=== PATIENT | male | born 1985 | race Caucasian/White ===

== ENCOUNTER 2019-12-29 10:02 | Emergency (ER) | payer BC, SELFPAY ==
[2019-12-29 10:13] VITALS: BP 148/94; BP 165/116; PULSE 112; RESP 20; TEMP 37.2; O2SAT 97; BMI 45.1
[2019-12-29 10:18] VITALS: BP 165/116; PULSE 112; RESP 20; TEMP 37.2; O2SAT 97
--- NOTE | 2019-12-29 10:37 | XR_ITS ---
EXAMINATION: XR CHEST CLINICAL INFORMATION: COVID like symptoms. COMPARISON: 01/16/2018 chest radiograph. TECHNIQUE: Frontal view of the chest was obtained. FINDINGS: Lordotic positioning and low lung volumes limit evaluation. A small asymmetric focal opacity seen in the right upper lobe. The left lung is clear. The heart and mediastinal structures are unremarkable. XR/XR chest 1V IMPRESSION: Limited study. Small focal asymmetric opacity in the right upper lobe could represent a small infiltrate or atelectasis. Short-term radiographic follow-up with better positioning if possible is recommended as indicated.
[2019-12-29 11:26] LABS: Eosinophils Percent Auto 0.5 % (0-4); Hematocrit 40.5 % (42-52); Hemoglobin 13.8 g/dl (14.0-18.0); Imm Gran Abs Auto 0.01 X10*3/uL (0.00-0.03); Imm Gran Pct Auto 0.2 % (0.0-0.4); Lymphocytes Absolute Auto 1.3 X10*3/uL (1.2-4.9); Lymphocytes Percent Auto 30.3 % (20-40); MANUAL DIFF FLAG NO; Mean Corpuscular HGB Conc 34.1 g/dl (31.0-36.0); Mean Corpuscular Volume 82.3 fL (80-98); Mean Platelet Volume 9.7 fL (9.4-12.4); Monocytes Absolute Auto 0.4 X10*3/uL (0.1-1.2); Monocytes Percent Auto 8.7 % (2-11); Neutrophils Absolute Auto 2.5 X10*3/uL (2.0-8.3); Neutrophils Percent Auto 60.3 % (45-73); Platelet Count 166 X10*3/uL (160-400); Red Blood Count 4.92 X10*6/uL (4.60-5.80); Red Cell Distribution Width 11.9 % (11.0-16.0); White Blood Count 4.2 X10*3/uL (4.8-10.8)
[2019-12-29 11:39] LABS: INTERNATIONAL NORM RATIO 1.3 (0.9-1.1); Prothrombin Time 15.3 SEC (10.8-13.0)
[2019-12-29 11:57] LABS: Anion Gap 15 (12-20); Blood Urea Nitrogen 12 mg/dL (9-16); Calcium 8.7 mg/dL (8.4-10.2); Carbon Dioxide 28 mmol/L (22-29); Chloride 97 mmol/L (96-108); Estimated Glomerular Filt Rate > 60; Glucose Random 288 mg/dL (60-115); Potassium 4.6 mmol/l (3.3-5.1); Sodium 135 mmol/L (135-145)
[2019-12-29 12:00] VITALS: BP 144/87; PULSE 120; RESP 19; TEMP 37.1
--- NOTE | 2019-12-29 12:00 | ED.GENADULT ---
HPI - General Adult General Chief complaint: General Medical Stated complaint: FLU LIKE SX,NO EXP TO COVID Time Seen by Provider: 12/29/19 10:36 Source: patient Mode of arrival: ambulatory Limitations: no limitations History of Present Illness HPI narrative: 34yoM c PMHx of asthma presenting to the ED c c/o sore throat, dry cough, body aches for the past week with associated shortness of breath that started yesterday and midsternal chest discomfort. Denies any other symptoms related to this. Reports possible exposure to COVID through work although no known sick contacts. Related Data Allergies Allergy/AdvReac Type Severity Reaction Status Date / Time No Known Allergies Allergy Verified 12/29/19 10:17 Review of Systems Review of Systems: Constitutional : No Fever, No Chills, No fatigue, No Malaise ENT/Mouth : + Sore throat, No runny nose Eyes: No Discharge Cardiovascular : + Chest Pain, + SOB Respiratory : +Cough, No Sputum, No Wheezing, No Smoke Exposure, No Dyspnea Gastrointestinal : No Nausea, No Vomiting, No Diarrhea Genitourinary : No Dysuria Musculoskeletal : No Myalgia Skin : No rash Neuro : No Headache Yes all other systems are reviewed and are negative PMFSH Past Medical History Attestation statement: The following information was validated with the patient. Medical History Asthma Social History Social History Smoking Status: Never smoker Use of substances other than those prescribed or required for medical reasons: No Advance Directives: No Advance Directives Information Provided: Yes Physical Exam Vital Signs: Vital Signs: Vital Signs Temp Pulse Resp BP Pulse Ox 12/29/19 14:29 98.8 F 116 H 20 134/72 96 12/29/19 12:00 98.7 F 120 H 19 144/87 H 12/29/19 10:18 99.0 F 112 H 20 165/116 H 97 12/29/19 10:13 99.0 F 112 H 20 165/116 H 97 Body Mass Index 45.1 vital signs have been reviewed as normal and appeared to be correct. Blood pressure normal. Heart rate normal. Respiration rate normal. Temperature normal. Oxygen saturation normal. Appearance: Alert. Oriented X3. No acute distress. Head: Normal external exam. Normocephalic. Atraumatic. No Leroy signs noted. No raccoon eyes noted Eyes: PERRLA. EOMI. Conjunctiva and sclera normal. Eyelids normal. ENT: EAC normal. TM's Normal. Pharynx normal. Uvula midline. Moist mucous membranes. No trismus noted. No drooling noted. No muffled voice noted. Neck: Normal inspection. Neck supple. FROM. No adenopathy. Thyroid Normal. No meningeal signs. No neck mass noted. CVS: Normal heart rate and rhythm. Heart sound normal. No murmurs noted. Pulses normal throughout. Respiratory: No respiratory distress. Painless inspiration. Breath sounds normal. No wheezes/rales/rhonchi noted. Chest nontender. No accessory muscle usage noted or decreased air movement noted. Abdomen: Soft and nontender. Bowel sounds normal in all 4 quadrants. No distention noted. No organomegaly noted. No visible injury noted. Back: No CVA tenderness. Full range of motion noted. Skin: Skin warm and dry. Normal skin color. Normal skin turgor. No rashes/lesions/lacerations noted. Extremities: No lower extremity edema. Extremities exhibit normal range of motion. Extremities nontender. Neuro: Oriented X 3. No motor deficit. No sensory deficit. Reflexes normal. Course Course Course Narrative: 11am - 34yoM c PMHx of asthma presenting to the ED c c/o sore throat, dry cough, body aches for the past week with associated shortness of breath that started yesterday and midsternal chest discomfort. Denies any other symptoms related to this. Reports possible exposure to COVID through work although no known sick contacts. - Concern for pna vs Viral/COVID-19 vs ACS vs PE. - Plan: Labs, CXR, EKG. Provide a breathing tx then re-evaluate. Reevaluation(s) Reevaluation #1: Focus Exam at this time. - White blood cell count 4.2 otherwise all other labs including D-dimer, troponin and BNP within normal limits. Chest x-ray questioning possible infiltrate therefore most likely pneumonia. Patient has been tachycardic from the 110s through the 120s therefore will give a L of IV fluids, obtain blood cultures and lactic acid and start on 2 g of Rocephin for pneumonia then re-evaluate. EKG is sinus tachycardia no acute ischemic changes noted. Time: 13:37 Reevaluation #2: Lactic acid 1.4. I ambulated the patient while in the room and his oxygen saturation has stayed stable at 96% on room air. Will DC home with antibiotics and symptomatic treatment instructions to self isolate until he knows his COVID swab results and instructions to return if any new or worsening symptoms I explained to the patient that he should buy a pulse ox to monitor his oxygen and his oxygen goes below 90s to return as soon as possible and patient understands and agrees with this plan. Also instructed patient to follow-up with primary care provider. Patient understands agrees with this. Time: 14:54 Medical Decision Making Lab Data Result diagrams: 12/29/19 11:10 12/29/19 11:10 Labs: Lab Results 12/29/19 12/29/19 12/29/19 Range/Units 11:10 11:10 11:10 WBC 4.2 L (4.8-10.8) X10*3/uL RBC 4.92 (4.60-5.80) X10*6/uL Hgb 13.8 L (14.0-18.0) g/dl Hct 40.5 L (42-52) % MCV 82.3 (80-98) fL MCH 28.0 (27.0-33.0) pg MCHC 34.1 (31.0-36.0) g/dl RDW 11.9 (11.0-16.0) % Plt Count 166 (160-400) X10*3/uL MPV 9.7 (9.4-12.4) fL Immature Gran % (Auto) 0.2 (0.0-0.4) % Neut % (Auto) 60.3 (45-73) % Lymph % (Auto) 30.3 (20-40) % [place] % (Auto) 8.7 (2-11) % Eos % (Auto) 0.5 (0-4) % Baso % (Auto) 0.0 (0-2) % Lymph # (Auto) 1.3 (1.2-4.9) X10*3/uL [place] # (Auto) 0.4 (0.1-1.2) X10*3/uL Eos # (Auto) 0.0 (0.0-0.4) X10*3/uL Baso # (Auto) 0.0 (0.0-0.2) X10*3/uL Abs Immat Gran (auto) 0.01 (0.00-0.03) X10*3/uL Absolute Neuts (auto) 2.5 (2.0-8.3) X10*3/uL Absolute Nucleated RBC 0.000 (0.0-0.012) X10*3/uL Nucleated RBC % (auto) 0.0 (0.0-0.2) /100WBC PT 15.3 H (10.8-13.0) SEC INR 1.3 H (0.9-1.1) D-Dimer < 200 NG/ML Sodium 135 (135-145) mmol/L Potassium 4.6 (3.3-5.1) mmol/l Chloride 97 (96-108) mmol/L Carbon Dioxide 28 (22-29) mmol/L Anion Gap 15 (12-20) BUN 12 (9-16) mg/dL Creatinine 1.02 (0.5-1.4) mg/dL Estim Creat Clear Calc 131.0 Estimated GFR > 60 Random Glucose 288 H (60-115) mg/dL Lactic Acid (0.5-2.0) mmol/L Calcium 8.7 (8.4-10.2) mg/dL Troponin I High Sens (<3.5-35.0) ng/L B-Natriuretic Peptide (<100) pg/mL 12/29/19 12/29/19 Range/Units 11:10 13:51 WBC (4.8-10.8) X10*3/uL RBC (4.60-5.80) X10*6/uL Hgb (14.0-18.0) g/dl Hct (42-52) % MCV (80-98) fL MCH (27.0-33.0) pg MCHC (31.0-36.0) g/dl RDW (11.0-16.0) % Plt Count (160-400) X10*3/uL MPV (9.4-12.4) fL Immature Gran % (Auto) (0.0-0.4) % Neut % (Auto) (45-73) % Lymph % (Auto) (20-40) % [place] % (Auto) (2-11) % Eos % (Auto) (0-4) % Baso % (Auto) (0-2) % Lymph # (Auto) (1.2-4.9) X10*3/uL [place] # (Auto) (0.1-1.2) X10*3/uL Eos # (Auto) (0.0-0.4) X10*3/uL Baso # (Auto) (0.0-0.2) X10*3/uL Abs Immat Gran (auto) (0.00-0.03) X10*3/uL Absolute Neuts (auto) (2.0-8.3) X10*3/uL Absolute Nucleated RBC (0.0-0.012) X10*3/uL Nucleated RBC % (auto) (0.0-0.2) /100WBC PT (10.8-13.0) SEC INR (0.9-1.1) D-Dimer NG/ML Sodium (135-145) mmol/L Potassium (3.3-5.1) mmol/l Chloride (96-108) mmol/L Carbon Dioxide (22-29) mmol/L Anion Gap (12-20) BUN (9-16) mg/dL Creatinine (0.5-1.4) mg/dL Estim Creat Clear Calc Estimated GFR Random Glucose (60-115) mg/dL Lactic Acid 1.4 (0.5-2.0) mmol/L Calcium (8.4-10.2) mg/dL Troponin I High Sens < 3.5 (<3.5-35.0) ng/L B-Natriuretic Peptide < 10 (<100) pg/mL Imaging Data Chest x-ray: Attestation: I personally reviewed and interpreted this imaging study as follows: Radiologist's impression: FINDINGS: Lordotic positioning and low lung volumes limit evaluation. A small asymmetric focal opacity seen in the right upper lobe. The left lung is clear. The heart and mediastinal structures are unremarkable. XR/XR chest 1V IMPRESSION: Limited study. Small focal asymmetric opacity in the right upper lobe could represent a small infiltrate or atelectasis. Short-term radiographic follow-up with better positioning if possible is recommended as indicated. ECG Data Attestation: I personally reviewed and interpreted this ECG as follows: Interpretation: Sinus tachycardia with ventricular rate of 118 with a normal p.r. interval with a right axis deviation with normal QT/QTC interval. No acute ischemic changes. Similar compared to prior January 2018.
[2019-12-29 12:05] LABS: D Dimer < 200 NG/ML
[2019-12-29] MEDS: Albuterol Sulfate (0.083%) 2.5 MG/3 ML VIAL.NEB 5 MG INHALE (12:22)
--- NOTE | 2019-12-29 12:26 | ECG_ITS ---
Test Reason : P Blood Pressure : / mmHG Vent. Rate : 118 BPM Atrial Rate : 118 BPM P-R Int : 136 ms QRS Dur : 082 ms QT Int : 320 ms P-R-T Axes : 051 091 021 degrees QTc Int : 448 ms Sinus tachycardia RSR' or QR pattern in V1 suggests right ventricular conduction delay Possible Left atrial enlargement Rightward axis Borderline ECG No significant changes seen Referred By: Heather Shaikh Electronically Signed By:ZHANNA GAMBINO MD
[2019-12-29 12:44] LABS: B Type Natriuretic Peptide < 10 pg/mL (<100); Troponin-I High Sensitivity < 3.5 ng/L (<3.5-35.0)
[2019-12-29] MEDS: 0.9 % Sodium Chloride 1,000 ML 999 ML IVCONT (14:18)
[2019-12-29] MEDS: guaiFEN/Codeine SF 200/20/10ML 10 ML LIQUID PO (14:19)
[2019-12-29] MEDS: Ketorolac Tromethamine 15 MG/ML VIAL IV (14:19)
[2019-12-29] MEDS: Cyclobenzaprine HCl 5 MG TABLET PO (14:19)
[2019-12-29 14:25] LABS: Lactic Acid 1.4 mmol/L (0.5-2.0)
[2019-12-29] MEDS: cefTRIAXone sodium 2 GM in 0.9 % Sodium Chloride 50 ML IV (14:25)
[2019-12-29 14:29] VITALS: BP 134/72; PULSE 116; RESP 20; TEMP 37.1; O2SAT 96
--- NOTE | 2019-12-29 14:32 | PC.NURSE ---
iv inserted, ivf running per order, iv antibiotics running per order, patient sinus tach on code enforcement officer 100s, vitals otherwise stable, will continue to monitor.
== END 2019-12-29 15:34 | disposition home or self-care (01) ==
PROVIDERS: Physician Assistant Medical; Emergency Provider Emergency Medicine; PCP Internal Medicine
DX: R05 Cough (principal); Z20.828 Contact with and (suspected) exposure to other viral communicable diseases; M79.10 Myalgia, unspecified site
CPT/HCPCS: 36415; 71045; 80048; 83605; 83880; 84484; 85025; 85379; 85610; 87040; 93005; 96365; 96375; 99284; J1885

== ENCOUNTER 2023-03-31 12:40 | Emergency (ER) | payer OTHER, SELFPAY ==
[2023-03-31] VITALS (7 sets, daily range): BP systolic 148–196; BP diastolic 80–118; PULSE 87–120; RESP 15–20; TEMP 36.4–37.1; O2SAT 99–100; BMI 37.1
--- NOTE | ~2023-03-31 | XR_ITS ---
EXAMINATION: XR CHEST CLINICAL INFORMATION: Chest pain COMPARISON: CXR from 12/29/2019. TECHNIQUE: 2 views of the chest were obtained. FINDINGS: Lungs are well-inflated and clear. Trachea is midline in position. No interstitial disease, consolidation or mass. No pleural effusion or pneumothorax. Cardiac silhouette and pulmonary vessels are normal in size. The mediastinum and cal have normal contour. The visualized bones and upper abdomen are unremarkable. XR/XR chest 2V IMPRESSION: Lungs have a normal appearance. No acute cardiopulmonary abnormality.
--- NOTE | ~2023-03-31 | CT_ITS ---
EXAMINATION: CT HEAD WITHOUT CONTRAST CLINICAL INFORMATION: Severe migraine. Dizziness. COMPARISON: CT head March 28, 2013 TECHNIQUE: Contiguous axial imaging was performed from the skull base to vertex without intravenous administration of contrast. Coronal and sagittal reformatted images are performed at the CT scanner. [This CT examination was performed using dose optimization techniques as appropriate, variously including the following: *Automated exposure control *Adjustment of mA and/or kV according to patient size (this includes techniques or standardized protocols for targeted exams where dose is matched to indication/reason for exam; i.e. extremities or head) *Use of iterative reconstruction technique] DLP: 987 mGy-cm. FINDINGS: There is no evidence of acute intracranial hemorrhage or territorial infarction. No abnormal mass-effect or midline shift is seen. Banuelos to white matter differentiation is well preserved. No extra-axial fluid collections are identified. The ventricles are normal in size. There is no abnormal attenuation within the brain parenchyma. There is no osseous abnormality. The mastoid air cells and visualized portions of the paranasal sinuses are well-aerated. CT/CT head/brain wo IV con IMPRESSION: No acute intracranial pathology.
--- NOTE | 2023-03-31 13:09 | ED.GENADULT ---
HPI - General Adult General Chief complaint: Headache Stated complaint: migraine nausea dizzy Time Seen by Provider: 03/31/23 14:31 History of Present Illness HPI narrative: The patient is a 37-year-old male with a history of migraine headaches. He says that he has had migraines bad enough to bring him to an emergency room in the past but he has not had such a migraine recently. He has been having intermittent problems with a headache for 1 week. He has been taking Excedrin for his headache at home. This morning when he woke up at around 5 or 06:00 he felt pretty well but about an hour later his headache returned and he also felt very dizzy with movements. No fever, sweats, chills. No neck stiffness. No fever, sweats, chills. Related Data Previous Rx's Medication Instructions Recorded acetaminophen 325 mg tablet 650 mg (2 x 325 mg) PO Q6H PRN 12/29/19 (Tylenol) fever or pain #14 tabs azithromycin 250 mg tablet See Rx Instructions PO .COMPLEX 12/29/19 pna #6 tabs codeine 10 mg-guaifenesin 100 mg/5 5 ml PO Q6H PRN cold symptoms #118 12/29/19 mL oral liquid (Guaifenesin AC) mL cyclobenzaprine 10 mg tablet 10 mg PO TID PRN muscle #10 tabs 12/29/19 doxycycline hyclate 100 mg capsule 100 mg PO BID pneumonia 10 days 12/29/19 #20 caps metoclopramide HCl 5 mg tablet 5 mg PO TID PRN nausea and 04/01/23 (Reglan) vomiting #10 tabs sumatriptan succinate 100 mg tablet See Rx Instructions PO .COMPLEX 04/01/23 PRN migraine headache #10 tabs Allergies Allergy/AdvReac Type Severity Reaction Status Date / Time No Known Allergies Allergy Verified 03/31/23 13:14 Review of Systems Review of Systems: Yes all other systems are reviewed and are negative PMF Past Medical History Medical History Asthma Social History Social History Smoked in Last 30 Days: No Use of substances other than those prescribed or required for medical reasons: No Advance Directives: No Physical Exam ED Vital Signs: Vital Signs - 24 hr 03/31/23 13:09 03/31/23 13:16 03/31/23 14:31 Temperature 98.7 F Pulse Rate 120 H 87 Respiratory Rate 20 15 Blood Pressure 196/112 H 163/118 H 148/103 H Pulse Oximetry 99 100 Oxygen Delivery Method Room Air Room Air Oxygen Flow Rate 03/31/23 15:21 03/31/23 16:46 03/31/23 18:02 Temperature 97.6 F Pulse Rate 90 99 104 H Respiratory Rate 15 15 Blood Pressure 162/95 H 161/102 H 159/90 H Pulse Oximetry Oxygen Delivery Method Room Air Oxygen Flow Rate 100 03/31/23 22:04 04/01/23 00:00 Temperature 98.7 F Pulse Rate 105 H 99 Respiratory Rate 16 16 Blood Pressure 155/80 H 139/82 Pulse Oximetry 96 Oxygen Delivery Method Room Air Room Air Oxygen Flow Rate BMI result Body Mass Index 37.1 Const Other: Patient is a large 37-year-old who was awake. He was in a darkened room with a towel over his eyes. He said that he felt very uncomfortable and was very photophobic. HENMT Other: Face is symmetrical. Mucous membranes moist. Eyes Other: Pupils are round equal, extraocular movements are intact, I do not appreciate any nystagmus. No conjunctival injection. No scleral icterus Neck Other: Neck is supple, no nuchal rigidity, no adenopathy Resp Effort & Inspection: normal respiratory effort Auscultation: clear to auscultation bilaterally Cardio Rate: regular rate Rhythm: regular rhythm Heart sounds: S1 normal heart sound present and S2 normal heart sound present GI Other: Abdomen is soft and nontender Skin Other: Skin is dry and unremarkable Neuro Other: The patient was in a darkened room with a towel over his eyes. However he was awake and alert and oriented. Eye movements are intact. No nystagmus. Pupils are round equal. Face is symmetrical. Speech is clear. Neck is supple. He moves his extremities symmetrically and appropriately. Finger-nose is normal. No focal neurological deficits Extrem Other: No peripheral edema, no calf swelling or tenderness Course Course Course Narrative: This is an RME: Additional HPI, ROS, PE not included below will be deferred to primary provider. This is a 37 year old male with a history of migraines, presenting to emergency department with complaints of headache, dizziness, nausea and vomiting x 1 week. Patient states that the dizziness started suddenly. No recent head trauma he has not on blood thinners. Also endorsing chest pain which started today. He is actively vomiting in triage. He is neurologically intact. Blood pressure 196/112, pulse 120. Spoke to charge nurse to move patient in the main emergency department given symptoms Plan: Lab, CXR, CT head, EKG Medications Administered Discontinued Medications Generic Name Dose Route Start Last Admin Trade Name Anton PRN Reason Stop Dose Admin Diphenhydramine HCl 25 mg 03/31/23 14:36 03/31/23 14:49 Diphenhydramine Hcl 50 Mg/Ml Vial IVPUSH 03/31/23 14:37 25 mg ONCE ONE Administration Diphenhydramine HCl 25 mg 03/31/23 18:19 03/31/23 18:51 Diphenhydramine Hcl 50 Mg/Ml Vial IVPUSH 03/31/23 18:20 25 mg ONCE ONE Administration Droperidol 1.25 mg 03/31/23 17:44 03/31/23 17:55 Droperidol 5 Mg/2 Ml Vial IVPUSH 03/31/23 17:45 1.25 mg ONCE ONE Administration Hydromorphone HCl 1 mg 03/31/23 18:22 03/31/23 18:51 Hydromorphone Hcl 1 Mg/Ml Syringe IVPUSH 03/31/23 18:23 1 mg ONCE ONE Administration Protocol Hydromorphone HCl 1 mg 03/31/23 21:42 03/31/23 22:02 Hydromorphone Hcl 1 Mg/Ml Syringe IVPUSH 03/31/23 21:43 1 mg ONCE ONE Administration Protocol Sodium Chloride 1,000 mls @ 999 mls/hr 03/31/23 14:45 03/31/23 15:58 Ns IV 03/31/23 15:45 Infused .Q1H1M DARIEN Infusion Sodium Chloride 1,000 mls @ 999 mls/hr 03/31/23 16:30 03/31/23 18:00 Ns IV 03/31/23 17:30 Infused .Q1H1M DARIEN Infusion Sodium Chloride 1,000 mls @ 999 mls/hr 03/31/23 18:00 03/31/23 18:56 Ns IV 03/31/23 19:00 Infused .Q1H1M DARIEN Infusion Ketorolac Tromethamine 15 mg 03/31/23 16:18 03/31/23 17:20 Ketorolac Tromethamine 15 Mg/Ml Vial IVPUSH 03/31/23 16:19 15 mg ONCE ONE Administration Meclizine HCl 50 mg 03/31/23 17:44 03/31/23 17:55 Meclizine Hcl 25 Mg Tablet PO 03/31/23 17:45 50 mg ONCE ONE Administration Ondansetron HCl 4 mg 03/31/23 13:15 03/31/23 14:40 Ondansetron Odt 4 Mg Tab.Rapdis TRANSLINGU 03/31/23 13:16 4 mg ONCE ONE Administration Prochlorperazine Edisylate 10 mg 03/31/23 14:36 03/31/23 14:49 Prochlorperazine Edisylate 10 Mg/2 Ml Vial IVPUSH 03/31/23 14:37 10 mg ONCE ONE Administration Sumatriptan Succinate 100 mg 03/31/23 23:13 03/31/23 23:59 Sumatriptan Succinate 100 Mg Tablet PO 03/31/23 23:14 100 mg ONCE ONE Administration Medical Decision Making Medical Decision Making MDM Narrative: The patient is a 37-year-old male with a history of migraine headaches who presents complaining of a headache associated with positional dizziness. He says that he has had migraines bad enough to bring him to an emergency room before but this is more severe than he has had in the past. My clinical suspicion is that the patient is having a worse than usual migraine. The migraine today has some atypical features including positional dizziness, however he has a supple neck and my suspicion for anything other than a migraine is low. A CT scan had been ordered at triage. This was done and was negative. Patient was treated initially with prochlorperazine and diphenhydramine and IV fluids. He fell asleep and I anticipated he would be feeling significantly better when he woke up but he continued to complain of the headache when he woke up and he was given 15 mg of IV ketorolac as well. I re-examined him and he felt somewhat better but still was quite uncomfortable. I have now ordered droperidol and meclizine. He received droperidol and felt mildly restless. I have ordered another dose of diphenhydramine. I will be signing the patient out to the oncoming emergency physician pending the results of these medications. -I received sign-out from my colleague Dr. Burt -patient states that the dizziness completely resolved, but still having a headache. Patient was giving a dose of IV Dilaudid. -after the 1st dose, patient states that he did have improvement but the headache was still present. Patient received a 2nd dose of Dilaudid -I discussed with the patient that if he has no improvement of his headache, we will need a lumbar puncture. Patient states that he has had a lumbar puncture in the past for headaches. Discussed with the patient that this time we can try p.o. medications specific for migraines. Patient given 100 mg of sumatriptan. -patient states that he had significant pain relief after the sumatriptan. No longer dizzy. Patient was ambulated around the emergency room and patient states that he feels very well. -patient was given referral/phone number to follow-up with neurology as he has never been formally diagnosed with migraines Differential Diagnosis Differential Diagnoses: The differential diagnosis associated with the presentation includes (Migraines, intracranial bleed, intracranial mass, BPPV, vertigo) Admission/Observation Consideration of admission/observation: Escalation of care including admission/observation considered (Given patient's severity of symptoms, admission was considered) Lab Data MDM Lab Attestation statement: I reviewed the patient's lab results. 03/31/23 13:27 03/31/23 13:27 Labs: Lab Results 03/31/23 03/31/23 03/31/23 Range/Units 13:27 14:35 17:21 WBC 7.5 (4.8-10.8) X10*3/uL RBC 5.46 (4.60-5.80) X10*6/uL Hgb 15.3 (14.0-18.0) g/dl Hct 43.3 (42.0-52.0) % MCV 79.3 L (80.0-98.0) fL MCH 28.0 (27.0-33.0) pg MCHC 35.3 (31.0-36.0) g/dl RDW 11.9 (11.0-16.0) % Plt Count 249 (160-400) X10*3/uL MPV 9.4 (9.4-12.4) fL Immature Gran % (Auto) 0.3 (0.0-0.4) % Neut % (Auto) 71.7 (45-73) % Lymph % (Auto) 21.6 (20-40) % [place] % (Auto) 5.2 (2-11) % Eos % (Auto) 0.8 (0-4) % Baso % (Auto) 0.4 (0-2) % Lymph # (Auto) 1.6 (1.2-4.9) X10*3/uL [place] # (Auto) 0.4 (0.1-1.2) X10*3/uL Eos # (Auto) 0.1 (0.0-0.4) X10*3/uL Baso # (Auto) 0.0 (0.0-0.2) X10*3/uL Abs Immat Gran (auto) 0.02 (0.00-0.03) X10*3/uL Absolute Neuts (auto) 5.3 (2.0-8.3) x10*3/uL Absolute Nucleated RBC 0.000 (0.0-0.012) X10*3/uL Nucleated RBC % (auto) 0.0 (0.0-0.2) /100WBC Sodium 134 L (135-145) mmol/L Potassium 4.3 (3.3-5.1) mmol/L Chloride 100 (96-108) mmol/L Carbon Dioxide 22 (22-29) mmol/L Anion Gap 16 (12-20) BUN 9 (9-16) mg/dL Creatinine 0.87 (0.5-1.4) mg/dL Estim Creat Clear Calc 134.1 Estimated GFR > 60 Random Glucose 327 H (60-115) mg/dL Calcium 9.8 D (8.4-10.2) mg/dL Total Bilirubin 0.5 (0.0-1.0) mg/dL Direct Bilirubin 0.2 (0.0-0.5) mg/dL AST 29 (5-37) U/L ALT 72 H (0-40) U/L Alkaline Phosphatase 102 (39-117) U/L Troponin I High Sens < 2.7 (<3.5-35.0) ng/L Total Protein 8.1 H (6.5-8.0) g/dL Albumin 4.7 (3.5-5.0) g/dL Lipase 16 (8-78) U/L Urine Color Yellow Urine Appearance Clear Urine pH 6.5 (5.0-9.0) Ur Specific [place] 1.020 (1.005-1.025) Urine Protein 100 (2+) H (Neg-Trace) mg/dL Urine Glucose (UA) >=1000 H (Negative) mg/dL Urine Ketones 15 (Negative) mg/dL Urine Blood Negative (Negative) Urine Nitrite Negative (Negative) Ur Leukocyte Esterase Negative (Negative) Urine RBC 0-2 (0-2) /HPF Urine WBC 0-5 (0-5) /HPF Ur Squamous Epith Cells 0-2 (0-2) /HPF Urine Bacteria None Seen (None Seen) Hyaline Casts 0-2 (0-2) /LPF COVID-19 (LEROY) Negative (Negative) COVID-19 Clin Com See Note Influenza Type A (REAGAN) Negative (Negative) Influenza Type B (REAGAN) Negative (Negative) Influenza A & B Note See Note Independent Interpretation I performed an independent interpretation of an: CT Scan Radiology Impression Discussion of test interpretation with radiology: I have reviewed the radiologist's reading. Radiologist Impression: FINDINGS: There is no evidence of acute intracranial hemorrhage or territorial infarction. No abnormal mass-effect or midline shift is seen. [place] to white matter differentiation is well preserved. No extra-axial fluid collections are identified. The ventricles are normal in size. There is no abnormal attenuation within the brain parenchyma. There is no osseous abnormality. The mastoid air cells and visualized portions of the paranasal sinuses are well-aerated. CT/CT head/brain wo IV con IMPRESSION: No acute intracranial pathology. Critical Care Time Critical Care Time Critical Care Time: Yes Total Critical Care Time: 75 Attestation: I have personally provided critical care time. Time includes review of lab data, radiology results, discussion with consultants, and monitoring for potential decompensation. Intervention performed as documented. Discharge Plan Discharge Clinical Impression: Migraine, Vertigo Patient Disposition: Home, Self-Care Instructions: Migraine Headache (ED), Benign Paroxysmal Positional Vertigo (ED) Additional Instructions: Please follow-up with your primary care physician tomorrow. If you have any worsening or new symptoms, please return to the emergency room or call 911 Prescriptions: New sumatriptan succinate 100 mg tablet See Rx Instructions .ROUTE .COMPLEX PRN (Reason: migraine headache) Qty: 10 0RF Rx Instructions: take 1 tab at onset of headache; if no relief, may repeat 1 tab after at least 2 hrs; max = 2 tabs/24 hrs PRN; metoclopramide HCl [Reglan] 5 mg tablet 5 mg PO TID PRN (Reason: nausea and vomiting) Qty: 10 0RF No Action azithromycin 250 mg tablet See Rx Instructions .ROUTE .COMPLEX Qty: 6 0RF Rx Instructions: take 500 mg today (day 1), then 250 mg for 4 days (days 2-5) doxycycline hyclate 100 mg capsule 100 mg PO BID 10 Days Qty: 20 0RF codeine-guaifenesin [Guaifenesin AC] 10-100 mg/5 mL liquid 5 ml PO Q6H PRN (Reason: cold symptoms) Qty: 118 0RF acetaminophen [Tylenol] 325 mg tablet 650 mg PO Q6H PRN (Reason: fever or pain) Qty: 14 0RF cyclobenzaprine 10 mg tablet 10 mg PO TID PRN (Reason: muscle) Qty: 10 0RF Referrals: Manjinder Brady MD [Physician] - 04/04/23 Stand Alone Forms: Work/School Release
--- NOTE | 2023-03-31 13:14 | ECG_ITS ---
Test Reason : CP Blood Pressure : / mmHG Vent. Rate : 093 BPM Atrial Rate : 093 BPM P-R Int : 136 ms QRS Dur : 090 ms QT Int : 362 ms P-R-T Axes : 047 099 019 degrees QTc Int : 450 ms Normal sinus rhythm Rightward axis Borderline ECG When compared to the previous EKG of No significant changes seen Referred By: Lennie Cabral Electronically Signed By:Henrik Gutierrez
[2023-03-31 13:32] LABS: MANUAL DIFF FLAG NO
[2023-03-31 13:33] LABS: Basophils Percent Auto 0.4 % (0-2); Eosinophils Absolute Auto 0.1 X10*3/uL (0.0-0.4); Eosinophils Percent Auto 0.8 % (0-4); Hematocrit 43.3 % (42.0-52.0); Hemoglobin 15.3 g/dl (14.0-18.0); Imm Gran Abs Auto 0.02 X10*3/uL (0.00-0.03); Imm Gran Pct Auto 0.3 % (0.0-0.4); Lymphocytes Absolute Auto 1.6 X10*3/uL (1.2-4.9); Lymphocytes Percent Auto 21.6 % (20-40); Mean Corpuscular HGB Conc 35.3 g/dl (31.0-36.0); Mean Corpuscular Volume 79.3 fL (80.0-98.0); Mean Platelet Volume 9.4 fL (9.4-12.4); Monocytes Absolute Auto 0.4 X10*3/uL (0.1-1.2); Monocytes Percent Auto 5.2 % (2-11); Neutrophils Absolute Auto 5.3 x10*3/uL (2.0-8.3); Neutrophils Percent Auto 71.7 % (45-73); Platelet Count 249 X10*3/uL (160-400); Red Blood Count 5.46 X10*6/uL (4.60-5.80); Red Cell Distribution Width 11.9 % (11.0-16.0); White Blood Count 7.5 X10*3/uL (4.8-10.8)
[2023-03-31 13:50] LABS: Alanine Aminotransferase 72 U/L (0-40); Albumin Level 4.7 g/dL (3.5-5.0); Alkaline Phosphatase 102 U/L (39-117); Anion Gap 16 (12-20); Aspartate Amino Transferase 29 U/L (5-37); Bilirubin Direct 0.2 mg/dL (0.0-0.5); Bilirubin Total 0.5 mg/dL (0.0-1.0); Blood Urea Nitrogen 9 mg/dL (9-16); Calcium 9.8 mg/dL (8.4-10.2); Carbon Dioxide 22 mmol/L (22-29); Chloride 100 mmol/L (96-108); Creatinine Clr Calc Pharmacy 134.1; Estimated Glomerular Filt Rate > 60; Glucose Random 327 mg/dL (60-115); Lipase 16 U/L (8-78); Potassium 4.3 mmol/L (3.3-5.1); Sodium 134 mmol/L (135-145); Total Protein 8.1 g/dL (6.5-8.0)
[2023-03-31 13:57] LABS: Troponin-I High Sensitivity < 2.7 ng/L (<3.5-35.0)
[2023-03-31] MEDS: Ondansetron ODT 4 MG TAB.RAPDIS TRANSLINGU (14:40)
[2023-03-31] MEDS: Prochlorperazine Edisylate 10 MG/2 ML VIAL IVPUSH (14:49)
[2023-03-31] MEDS: diphenhydrAMINE HCL 50 MG/ML VIAL 25 MG IVPUSH ×2 (14:49→18:51)
[2023-03-31] MEDS: 0.9 % Sodium Chloride 1,000 ML 999 ML IV ×3 (14:49→17:55)
[2023-03-31 15:00] LABS: IDNOW Serial# 08D9AD1C; IDNOW Serial# 152EDE1D; Influenza A Negative (Negative); Influenza B2 Negative (Negative)
[2023-03-31 15:01] LABS: COVID-19 Test Negative (Negative)
--- NOTE | 2023-03-31 16:47 | PC.NURSE ---
PT RESTING WITH EYES CLOSED AT THIS TIME, VS DOCUMENTED. NO TORADOL GIVEN AT THIS TIME, PT ALLOWED TO SLEEP
[2023-03-31] MEDS: Ketorolac Tromethamine 15 MG/ML VIAL IVPUSH (17:20)
[2023-03-31 17:31] LABS: Appearance Urine Clear; Color Urine Yellow; Glucose Urine UA >=1000 mg/dL (Negative); Leukocyte Esterase Urine Negative (Negative); Nitrite Urine Negative (Negative); PH 6.5 (5.0-9.0); UMIC TRIGGER UACC YES; Urine Blood Negative (Negative); Urine Ketones 15 mg/dL (Negative); Urine Protein 100 (2+) mg/dL (Neg-Trace)
[2023-03-31 17:43] LABS: Bacteria Urine None Seen (None Seen); Hyaline Casts Urine 0-2 /LPF (0-2); RBC Urine 0-2 /HPF (0-2); Squamous Epithelial Cell Urine 0-2 /HPF (0-2); WBC Urine 0-5 /HPF (0-5)
[2023-03-31] MEDS: droPERidol 5 MG/2 ML VIAL 1.25 MG IVPUSH (17:55)
[2023-03-31] MEDS: Meclizine HCl 25 MG TABLET 50 MG PO (17:55)
[2023-03-31] MEDS: HYDROmorphone HCl 1 MG/ML SYRINGE IVPUSH ×2 (18:51→22:02)
--- NOTE | 2023-03-31 19:54 | PC.NURSE ---
Pt resting quietly at this time. Currently rating pain 9/10 when not moving. States if he moves the pain is automatically a 10/10 and he has severe dizziness.
[2023-03-31] MEDS: SUMAtriptan succinate 100 MG TABLET PO (23:59)
[2023-04-01] VITALS: BP 139/82; PULSE 99; RESP 16; TEMP 37.1; O2SAT 96
--- NOTE | 2023-04-01 00:51 | PC.NURSE ---
Pt ambulatory in hallway with steady gait. Relates some dizziness but states its probably from all the medications. Provider Dr. Davila aware.
== END 2023-04-01 01:20 | disposition home or self-care (01) ==
PROVIDERS: Emergency Medicine; Physician Assistant Medical; Emergency Provider Emergency Medicine; PCP Internal Medicine
DX: G43.909 Migraine, unspecified, not intractable, without status migrainosus (principal); R42 Dizziness and giddiness; R07.89 Other chest pain; Z11.52 Encounter for screening for COVID-19; Z79.899 Other long term (current) drug therapy
CPT/HCPCS: 36415; 70450; 71046; 80048; 80076; 81001; 83690; 84484; 85025; 87502; 87635; 93005; 96361; 96374; 96375; 96376; 99285; J0737; J1170; J1200; J1790; J1885

== ENCOUNTER → 2023-03-31 13:14 | Outpatient (BNV) | payer OTHER, SELFPAY | PROVIDERS: Emergency Provider Emergency Medicine; PCP Internal Medicine; Visit Provider Internal Medicine Cardiovascular Disease | DX: R07.9 Chest pain, unspecified (principal); R94.31 Abnormal electrocardiogram [ECG] [EKG] | CPT/HCPCS: 93010 ==

== ENCOUNTER 2023-04-05 15:21 | Outpatient (REF) | payer OTHER, SELFPAY ==
[2023-04-05 16:18] LABS: Estimated Average Glucose 223 mg/dL; Hemoglobin A1c % 9.4 % (<6.0)
[2023-04-05 16:58] LABS: Anion Gap 16 (12-20); Blood Urea Nitrogen 14 mg/dL (9-16); Calcium 10.5 mg/dL (8.4-10.2); Carbon Dioxide 26 mmol/L (22-29); Chloride 99 mmol/L (96-108); Estimated Glomerular Filt Rate > 60; Glucose Random 366 mg/dL (60-115); Sodium 136 mmol/L (135-145)
== END 2023-04-05 15:22 | disposition home or self-care (01) ==
LOC: HO.LAB 15:21
PROVIDERS: PCP Internal Medicine; Visit Provider Internal Medicine
DX: E11.9 Type 2 diabetes mellitus without complications (principal)
CPT/HCPCS: 36415; 80048; 83036

== ENCOUNTER 2024-05-14 17:58 | Emergency (ER) | payer OTHER, SELFPAY ==
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
[2024-05-14 18:07] VITALS: BP 175/115; PULSE 114; RESP 18; TEMP 36.6; O2SAT 98; BMI 44.1
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
[2024-05-14 22:49] VITALS: BP 167/109; PULSE 117; RESP 18; TEMP 36.7; O2SAT 97
[2024-05-14] MEDS: Cyclobenzaprine HCl 10 MG TABLET PO (23:20)
[2024-05-14] MEDS: Ketorolac Tromethamine 60 MG/2 ML VIAL IM (23:20)
[2024-05-14 23:35] VITALS: BP 167/109; PULSE 117; RESP 18; TEMP 36.7; O2SAT 97
== END 2024-05-14 23:36 | disposition home or self-care (01) ==
PROVIDERS: Emergency Provider Emergency Medicine; PCP Internal Medicine
DX: Z04.1 Encounter for examination and observation following transport accident (principal); M54.6 Pain in thoracic spine; M79.602 Pain in left arm; R51.9 Headache, unspecified; M79.10 Myalgia, unspecified site
CPT/HCPCS: 70450; 71101; 72125; 96372; 99284; J1885

== ENCOUNTER → 2024-05-14 18:11 | Outpatient (BNV) | payer OTHER, SELFPAY | PROVIDERS: PCP Internal Medicine; Visit Provider Specialist | DX: M54.2 Cervicalgia (principal); S09.90XA Unspecified injury of head, initial encounter; R07.81 Pleurodynia; V89.2XXA Person injured in unspecified motor-vehicle accident, traffic, initial encounter | CPT/HCPCS: 70450; 71101; 72125 ==

== ENCOUNTER 2024-11-23 07:50 | Outpatient (AMB) | payer OTHER, SELFPAY ==
--- NOTE | 2024-11-23 07:53 | A.OFFPC_ITS ---
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 Accompanied by: Self / Same As Patient Allergies No Known Allergies Allergy (Verified 11/23/24 08:03) Medication List - Last Reconciled 11/23/24 by JESSE Montes De Oca empagliflozin (Jardiance) 10 mg PO DAILY lisinopril 20 mg PO DAILY meclizine 25 mg PO BID PRN metformin ER 500 mg PO BID sumatriptan succinate take 1 tab at onset of headache; if no relief, may repeat 1 tab after at least 2 hrs; max = 2 tabs/24 hrs PRN; Tobacco use date assessed: 11/23/24 Dental Screening Dental Screen Date: 11/23/24 Did you have a dental visit in the last 12 months?: Yes Did you have a dental problem in the last 6 months where you did not have access to dental care?: No Was dental information given to patient?: No HPI HPI Comments History of Present Illness Details 39-year-old male with history of vertigo , type 2 diabetes, hypertension Former pt of Dr. Daniels. New baby girl. HTN- Initial BP 158/108. Occasional headaches. No chest pains Type 2 diabetes- last A1c 9.4%. On jardiance and metformin and not checking sugars. Annual eye exams, [facility] [employer]. Vertigo- managed with meclizine. Symptoms controlled Migraines- sumatriptan works well. Ran out. Otherwise excedrin Concerns: None Health Maintenance: Colonoscopies to started 39 ROS: See HPI EXAM: Constitutional - Awake and Alert, No apparent distress Eyes - PERRL Cardiovascular - S1S2, RRR, No edema Respiratory - Normal lung expansion, Normal respiratory effort, No respiratory distress, CTA bilaterally Extremities - no calf tenderness bilaterally, no swelling Skin - Warm/Dry Neurological - Alert & oriented x3 Psychological - Appropriate affect [facility] Medical History (Updated 11/23/24 @ 08:22 by JESSE Montes De Oca) Migraines HLD (hyperlipidemia) Type 2 diabetes mellitus HTN (hypertension) Asthma Surgical History (Updated 11/23/24 @ 08:17 by JESSE Montes De Oca) No pertinent past surgical history Family History (Updated 11/23/24 @ 08:18 by JESSE Montes De Oca) Maternal Grandfather Leukemia Social History Housing: House Unable to assess alcohol history related to: Unknown Patient Tobacco Use Status: Never used Tobacco e-Cigarette/Vaping Use: Never Used service: No Current occupational status: employed Cognitive needs: No Hearing needs: No Vision needs: Yes (Rx glasses) Questionnaire PHQ-9 Over the last 2 weeks, how often have you been bothered by any of the following problems? 1. Little interest or pleasure in doing things: several days 2. Feeling down, depressed, or hopeless: not at all 3. Trouble falling or staying asleep, or sleeping too much: several days 4. Feeling tired or having little energy: several days 5. Poor appetite or overeating: several days 6. Feeling bad about yourself - or that you are a failure or have let yourself or your family down: not at all 7. Trouble concentrating on things, such as reading the newspaper or watching television: not at all 8. Moving or speaking so slowly that other people could have noticed. Or the opposite - being so fidgety or restless that you have been moving around a lot more than usual: not at all 9. Thoughts that you would be better off or of hurting yourself in some way: not at all Total score: 4 Depression Screening Interpretation: Negative Depression Screening Done: Yes 67518 - PHQ-9 Billing: Yes Source: Developed by Drs. Ashu Banks, Treasure Romero, Elvin Kapoor and colleagues, with an educational june from [employer]. Thrive Questionnaire Date Thrive assessed: 11/23/24 I am a: Patient What is your living situation today?: I have a steady place to live Within the past 12 months, did the food you bought not last and you didn't have the money to get more?: Never true Within the past 12 months, did you worry whether your food would run out before you got money to buy more?: Never true Do you have trouble paying for medicines?: No Do you have trouble getting transportation to medical appointments?: No Do you have trouble paying your heating and electricity bill?: No Do you have trouble taking care of your child, family member or friend?: No Do you have trouble with day-to-day activities such as bathing, preparing meals, shopping, managing finances, etc.?: No Are you currently unemployed and looking for a job?: No Are you interested in more education?: No Please select the resources that you would like help with: None THRIVE Score: 0 AUDIT C Alcohol Use Questionnaire (AUDIT-C) 1. How often do you have a drink containing alcohol?: Monthly or less Total Score: 1 SASHA-7 AMB Questionnaire SASHA-7 Date SASHA - 7 assessed: 11/23/24 Feeling nervous, anxious, or on edge: 1 = Several days Not being able to stop or control worryin = Not at all Worrying too much about different things: 1 = Several days Trouble relaxin = Several days Being so restless that it is hard to sit still: 0 = Not at all Becoming easily annoyed or irritable: 1 = Several days Feeling afraid as if something awful might happen: 0 = Not at all Total SASHA-7 score (0-4 normal; 5-9 mild; 10-14 moderate; 15-21 severe): 4 Source: Developed by Drs. Ashu Banks, Treasure Romero, Elvin Kapoor and colleagues, with an educational june from [employer]. SASHA-7 Assessment Billing SASHA-7 Assessment Tool: SASHA-7 Assessment 63597 Physical exam (Primary Care) Vital Signs: Last Vital Signs Temp 97.1 F 11/23/24 08:03 Pulse 88 11/23/24 08:03 Resp 16 11/23/24 08:03 BP 158/108 H 11/23/24 08:03 Pulse Ox 98 11/23/24 08:03 Oxygen Delivery Method Room Air 11/23/24 08:03 BMI result Body Mass Index 42.6 Tobacco/Smoking Status: Tobacco use Status Tobacco use date assessed 11/23/24 11/23/24 08:07 Patient Tobacco Use Status Never used Tobacco 11/23/24 08:07 e-Cigarette/Vaping Use Never Used 11/23/24 08:07 PHQ-9: PHQ-9 Score PHQ-9: Total score 4 11/23/24 08:13 Depression Screening Interpretation: Negative Thrive Assessment: Date of Thrive Assessment Date Thrive assessed 11/23/24 11/23/24 08:07 Coding Level of Care Code New Pt Level 4 (66609) Complex EM visit Add On G2211 Diagnoses HTN (hypertension) I10 Type 2 diabetes mellitus E11.9 HLD (hyperlipidemia) E78.5 Migraines G43.909 Additional Codes SASHA-7 Assessment Billing - SASHA-7 Assessment Tool: SASHA-7 Assessment 37904 ([id number]) PHQ-9 - 09185 - PHQ-9 Billing: Yes ([id number]) Assessment & Plan Assessment & Plan (1) HTN (hypertension): Code(s): I10 - Essential (primary) hypertension Category: Medical Plan: Uncontrolled. Initiate lisinopril 20 mg daily. (2) Type 2 diabetes mellitus: Code(s): E11.9 - Type 2 diabetes mellitus without complications Category: Medical Plan: Previously uncontrolled. Updated A1c ordered. Urine microalbumin screen ordered. Continue metformin 500 mg twice daily ER and Jardiance 10 mg daily, dose to be adjusted as indicated. Glucometer and supplies ordered and advised to check fasting glucose daily with goal being less than 130 Annual eye exams (3) HLD (hyperlipidemia): Code(s): E78.5 - Hyperlipidemia, unspecified Category: Medical Plan: Lipid panel ordered (4) Migraines: Code(s): G43.909 - Migraine, unspecified, not intractable, without status migrainosus Category: Medical Plan: Refill sumatriptan Plan Return the office in 2 weeks, labs to be completed today. Orders: Orders Hemoglobin A1c Today E11.9 - Type 2 diabetes mellitus without complications, E78.5 - Hyperlipidemia, unspecified, G43.909 - Migraine, unspecified, not intractable, without status migrainosus, I10 - Essential (primary) hypertension Lipid Panel Today E11.9 - Type 2 diabetes mellitus without complications, E78.5 - Hyperlipidemia, unspecified, G43.909 - Migraine, unspecified, not intractable, without status migrainosus, I10 - Essential (primary) hypertension Basic Metabolic Panel Today E11.9 - Type 2 diabetes mellitus without complications, E78.5 - Hyperlipidemia, unspecified, G43.909 - Migraine, unspecified, not intractable, without status migrainosus, I10 - Essential (primary) hypertension Liver Panel Today E11.9 - Type 2 diabetes mellitus without complications, E78.5 - Hyperlipidemia, unspecified, G43.909 - Migraine, unspecified, not intractable, without status migrainosus, I10 - Essential (primary) hypertension Microalbumin, Random (w Creat) Today E11.9 - Type 2 diabetes mellitus without complications, E78.5 - Hyperlipidemia, unspecified, G43.909 - Migraine, unspecified, not intractable, without status migrainosus, I10 - Essential (primary) hypertension Medications: New lisinopril 20 mg PO DAILY 90 tabs 1RF blood-glucose meter (Dat[employer]olutionuch Ultra2 Meter) As directed 1 ea 0RF E11.9 - Type 2 diabetes mellitus without complications lancets (PipelinefxTouch UltraSoft 2 Lancet) As directed. Check fasting glucose daily 100 ea 1RF E11.9 - Type 2 diabetes mellitus without complications blood sugar diagnostic (PipelinefxTouch Ultra Test strips) As directed. Check fasting glucose levels daily 100 ea 1RF E11.9 - Type 2 diabetes mellitus without complications Refilled sumatriptan succinate take 1 tab at onset of headache; if no relief, may repeat 1 tab after at least 2 hrs; max = 2 tabs/24 hrs PRN; 10 tabs 0RF migraine headache Discontinued acetaminophen (Tylenol) Discontinued Reason: Patient Completed Course 650 mg (2 x 325 mg) PO Q6H PRN 14 tabs 0RF fever or pain azithromycin Discontinued Reason: Patient Completed Course take 500 mg today (day 1), then 250 mg for 4 days (days 2-5) 6 tabs 0RF pna codeine-guaifenesin 10-100 mg/5 mL (Guaifenesin AC) Discontinued Reason: Patient Completed Course 5 mL PO Q6H PRN 118 mL 0RF cold symptoms cyclobenzaprine Discontinued Reason: Patient Completed Course 10 mg PO TID PRN 10 tabs 0RF muscle NS doxycycline hyclate Discontinued Reason: Patient Completed Course 100 mg PO BID 10 days 20 caps 0RF pneumonia metoclopramide HCl (Reglan) Discontinued Reason: Patient Completed Course 5 mg PO TID PRN 10 tabs 0RF nausea and vomiting cyclobenzaprine Discontinued Reason: Patient Completed Course 10 mg PO TID PRN 7 tabs 0RF muscle spasm ketorolac Discontinued Reason: Patient Completed Course 10 mg PO TID PRN 12 tabs 0RF pain
[2024-11-23 08:03] VITALS: BP 158/108; PULSE 88; RESP 16; TEMP 36.2; O2SAT 98; BMI 42.6
== END 2024-11-23 08:25 | disposition home or self-care (01) ==
LOC: HO.HMCHD 07:51
PROVIDERS: PCP Internal Medicine; Visit Provider Physician Assistant
DX: I10 Essential (primary) hypertension (principal); E11.9 Type 2 diabetes mellitus without complications; E78.5 Hyperlipidemia, unspecified; G43.909 Migraine, unspecified, not intractable, without status migrainosus

== ENCOUNTER → 2024-11-23 07:50 | Outpatient (BNVA) | payer OTHER, SELFPAY | PROVIDERS: PCP Internal Medicine; Visit Provider Physician Assistant | DX: I10 Essential (primary) hypertension (principal); E11.9 Type 2 diabetes mellitus without complications; E78.5 Hyperlipidemia, unspecified; G43.909 Migraine, unspecified, not intractable, without status migrainosus; R42 Dizziness and giddiness; Z79.84 Long term (current) use of oral hypoglycemic drugs; Z13.31 Encounter for screening for depression; Z13.39 Encounter for screening examination for other mental health and behavioral disorders | CPT/HCPCS: 96127 ==

== ENCOUNTER 2024-11-23 08:28 | Outpatient (REF) | payer OTHER, SELFPAY ==
[2024-11-23 10:54] LABS: Hemoglobin A1C 221.9662 umol/L; Total Hemoglobin (HGBA1C) 3740.4890 umol/L
[2024-11-23 11:27] LABS: Alanine Aminotransferase 56 U/L (0-40); Albumin Level 5.0 g/dL (3.5-5.0); Alkaline Phosphatase 92 U/L (39-117); Anion Gap 10 (12-20); Aspartate Amino Transferase 24 U/L (5-37); Blood Urea Nitrogen 15 mg/dL (9-16); Calcium 9.4 mg/dL (8.4-10.2); Carbon Dioxide 28 mmol/L (22-29); Chloride 105 mmol/L (96-108); Cholesterol 145 mg/dL (<200); Estimated Glomerular Filt Rate > 60; HDL Cholesterol 30 mg/dL (>40); Potassium 4.8 mmol/L (3.3-5.1); Sodium 138 mmol/L (135-145); Total Protein 7.7 g/dL (6.5-8.0); Triglycerides 197 mg/dL (<150)
[2024-11-23 11:33] LABS: Microalbum/Creatinine Ratio Ur 38.4 ug/mg cr (<30)
== END 2024-11-23 08:29 | disposition home or self-care (01) ==
LOC: HO.10HDL 08:28
PROVIDERS: Visit Provider Physician Assistant
DX: E11.9 Type 2 diabetes mellitus without complications (principal); E78.5 Hyperlipidemia, unspecified; G43.909 Migraine, unspecified, not intractable, without status migrainosus; I10 Essential (primary) hypertension
CPT/HCPCS: 36415; 80048; 80061; 80076; 82043; 82570; 83036

== ENCOUNTER 2024-12-07 09:23 | Outpatient (AMB) | payer OTHER, SELFPAY ==
[2024-12-07 08:33] VITALS: BP 146/84; PULSE 82; TEMP 36.3; O2SAT 99; BMI 42.4
--- NOTE | 2024-12-07 08:33 | A.OFFPC_ITS ---
Vital Signs 12/07/24 08:33 Height 5 ft 6 in Weight 119.295 kg BMI 42.4 BP 146/84 H Blood Pressure Location Lt brachial Position Sitting Pulse 82 Pulse Source Pulse Oximeter Temp 97.3 F Temp Source Temporal Artery Scan Pulse Oximetry (%) 99 Oxygen Delivery Method Room Air Intake Visit Reasons: 2 week BP f/u Blasting Entry Specialist Required: No Accompanied by: Self / Same As Patient Allergies No Known Allergies Allergy (Verified 12/07/24 08:33) Medication List - Last Reconciled 12/07/24 by JESSE Montes De Oca blood sugar diagnostic (Accu-Chek Guide test strips) As directed.Check fasting glucose daily blood-glucose meter (Accu-Chek Guide Glucose Meter) As directed. Check fasting glucose daily empagliflozin (Jardiance) 10 mg PO DAILY lancets (Accu-Chek Safe-T-Pro) As directed.Check fasting glucose daily lisinopril 20 mg PO DAILY meclizine 25 mg PO BID PRN metformin ER 1,000 mg (2 x 500 mg) PO BID sumatriptan succinate PRN; Tobacco use date assessed: 12/07/24 Dental Screening Dental Screen Date: 12/07/24 Did you have a dental visit in the last 12 months?: Yes Did you have a dental problem in the last 6 months where you did not have access to dental care?: No HPI HPI Comments History of Present Illness Details 39-year-old male with history of vertigo , type 2 diabetes, hypertension, migraines presents to the office today for follow-up Former pt of Dr. Daniels. New baby girl. HTN- started on lisinopril 20 mg daily at last visit. Blood pressure initially in the office today 146/84, recheck 160/80 Type 2 diabetes- A1c improved to 7.6%. On jardiance 10 mg and metformin 1000 mg ER twice daily. Glucometer ordered but has not received this from the pharmacy. Annual eye exams, [facility]. Vertigo- managed with meclizine. Symptoms controlled Migraines- sumatriptan works well usually. Had a migraine tuesday that lasted 5 days. Photo and phonophobia. Occ aura. L sided pulling. Otherwise excedrine Concerns: None Health Maintenance: Colonoscopies to started 45 ROS: See HPI EXAM: Constitutional - Awake and Alert, No apparent distress Eyes - PERRL Cardiovascular - S1S2, RRR, No edema Respiratory - Normal lung expansion, Normal respiratory effort, No respiratory distress, CTA bilaterally Extremities - no calf tenderness bilaterally, no swelling Skin - Warm/Dry Neurological - Alert & oriented x3 Psychological - Appropriate affect [facility] Medical History Migraines HLD (hyperlipidemia) Type 2 diabetes mellitus HTN (hypertension) Asthma Surgical History No pertinent past surgical history Family History (Updated 12/07/24 @ 09:33 by Janee Hidalgo MA) Maternal Grandfather Leukemia Mother No problems noted. Father No problems noted. Social History Housing: House Patient Tobacco Use Status: Never used Tobacco e-Cigarette/Vaping Use: Never Used service: No Current occupational status: employed Cognitive needs: No Hearing needs: No Vision needs: Yes (Rx glasses) Questionnaire PHQ-9 Over the last 2 weeks, how often have you been bothered by any of the following problems? 1. Little interest or pleasure in doing things: not at all 2. Feeling down, depressed, or hopeless: not at all 3. Trouble falling or staying asleep, or sleeping too much: not at all 4. Feeling tired or having little energy: not at all 5. Poor appetite or overeating: not at all 6. Feeling bad about yourself - or that you are a failure or have let yourself or your family down: not at all 7. Trouble concentrating on things, such as reading the newspaper or watching television: not at all 8. Moving or speaking so slowly that other people could have noticed. Or the opposite - being so fidgety or restless that you have been moving around a lot more than usual: not at all 9. Thoughts that you would be better off or of hurting yourself in some way: not at all Total score: 0 Source: Developed by Drs. Ashu Banks, Treasure Romero, Elvin Kapoor and colleagues, with an educational june from [employer]. Thrive Questionnaire Date Thrive assessed: 12/07/24 I am a: Patient Within the past 12 months, did the food you bought not last and you didn't have the money to get more?: Never true Within the past 12 months, did you worry whether your food would run out before you got money to buy more?: Never true Do you have trouble paying for medicines?: No Do you have trouble getting transportation to medical appointments?: No Do you have trouble paying your heating and electricity bill?: No Do you have trouble taking care of your child, family member or friend?: No Do you have trouble with day-to-day activities such as bathing, preparing meals, shopping, managing finances, etc.?: No Are you currently unemployed and looking for a job?: No Are you interested in more education?: No THRIVE Score: 0 AUDIT C Alcohol Use Questionnaire (AUDIT-C) 1. How often do you have a drink containing alcohol?: Monthly or less 2. How many drinks containing alcohol do you have on a typical day when you are drinking?: 1 or 2 3. How often do you have six or more drinks on one occasion?: Less than monthly Total Score: 2 SASHA-7 AMB Questionnaire SASHA-7 Date SASHA - 7 assessed: 12/07/24 Feeling nervous, anxious, or on edge: 0 = Not at all Not being able to stop or control worryin = Not at all Worrying too much about different things: 0 = Not at all Trouble relaxin = Not at all Being so restless that it is hard to sit still: 0 = Not at all Becoming easily annoyed or irritable: 0 = Not at all Feeling afraid as if something awful might happen: 0 = Not at all Total SASHA-7 score (0-4 normal; 5-9 mild; 10-14 moderate; 15-21 severe): 0 Source: Developed by Drs. Ashu Banks, Treasure Romero, Elvin Kapoor and colleagues, with an educational june from [employer]. Physical exam (Primary Care) Vital Signs: Last Vital Signs Temp 97.3 F 12/07/24 08:33 Pulse 82 12/07/24 08:33 BP 146/84 H 12/07/24 08:33 Pulse Ox 99 12/07/24 08:33 Oxygen Delivery Method Room Air 12/07/24 08:33 BMI result Body Mass Index 42.4 Tobacco/Smoking Status: Tobacco use Status Tobacco use date assessed 12/07/24 12/07/24 08:35 Patient Tobacco Use Status Never used Tobacco 12/07/24 08:35 e-Cigarette/Vaping Use Never Used 12/07/24 08:35 PHQ-9: PHQ-9 Score PHQ-9: Total score 0 12/07/24 09:34 Thrive Assessment: Date of Thrive Assessment Date Thrive assessed 12/07/24 12/07/24 08:35 Coding Level of Care Code Est Pt Level 4 (19790) Complex EM visit Add On G2211 Diagnoses HTN (hypertension) I10 Type 2 diabetes mellitus E11.9 HLD (hyperlipidemia) E78.5 Migraines G43.909 Assessment & Plan Assessment & Plan (1) HTN (hypertension): Code(s): I10 - Essential (primary) hypertension Category: Medical Plan: Uncontrolled. Add hydrochlorothiazide 25 mg daily can continue lisinopril 20 mg daily (2) Type 2 diabetes mellitus: Code(s): E11.9 - Type 2 diabetes mellitus without complications Category: Medical Plan: Improved and patient had been out of his current medications for some time before resuming. We will continue metformin and Jardiance at current doses. Continue with annual eye exams. (3) HLD (hyperlipidemia): Code(s): E78.5 - Hyperlipidemia, unspecified Category: Medical Plan: Controlled. (4) Migraines: Code(s): G43.909 - Migraine, unspecified, not intractable, without status migrainosus Category: Medical Plan: Not well-controlled. Referred to Neurology for further evaluation and management. Continue sumatriptan as needed and/or Excedrin Plan Return the office in 2 weeks Orders: Referrals Neurology Referral G43.909 - Migraine, unspecified, not intractable, without status migrainosus Medications: New hydrochlorothiazide 25 mg PO DAILY 90 tabs 1RF Changed From sumatriptan succinate take 1 tab at onset of headache; if no relief, may repeat 1 tab after at least 2 hrs; max = 2 tabs/24 hrs PRN; 10 tabs 0RF migraine headache To sumatriptan succinate PRN; 30 tabs 0RF migraine headache From sumatriptan succinate PRN; 30 tabs 0RF migraine headache To sumatriptan succinate Take 1 tab as needed for headache. May repeat dose once in 2 hours. No more than 2 doses in 24 hours 30 tabs 0RF migraine headache
--- OUTSIDE RECORDS SUMMARY | 2024-12-07 09:53 | XMS_ITS | Patient Health Record ---
Author Organization [facility] [place] Address [address] [place] [address] Care Team Providers Care Hand Deicer Element Winder Name Role Phone Tavares Daniels MD Primary Care Provider Arie Kaufman Unavailable [phone] Reason For Referral No Information Medications Medication SIG (Take, Route, Frequency, Duration) Notes Start Date End Date Status Keflex 500 MG 1 capsule Orally every 12 hrs; Duration: 10 day(s) 07/09/2016 Not-Taking Cephalexin 500 MG 1 capsule Orally Twice a day started on 08-15-2015 X 10 d Not-Taking Cephalexin 500 MG 1 capsule Orally every 12 hrs; Duration: 10 day(s) Not-Taking LamISIL 250 MG 1 tablet Orally Once a day; Duration: as needed Active Ciclopirox Olamine 0.77% external Apply to effected areas twice a day; Duration: 30 days 09/26/2015 Not-Taking Social History Tobacco use other than smoking: Question Answer Notes Are you an other tobacco user? No Problems No Known Problems Plan Of Treatment Pending Test Test Name Order Date *Liver Function Test (LFT) 07/23/2016 22488 I&D ABSCESS- SIMPLE,SINGLE 016 06780 I&D ABSCESS- SIMPLE,SINGLE 016 70228- I&D ABSCESS-COMPLICATED,MULTI 07/2016 Insurance Providers Payer Name Payer Address Payer Phone Subscriber Number Group Number Insured Name Patient Relationship to Insured Coverage Start Date Coverage End Date Cign[employer] [address] [place] [phone] [id number] Medardo Lew Self - patient is the insured Medical (General) History Medical History History ICD Code asthma Headaches
== END 2024-12-07 09:59 | disposition home or self-care (01) ==
LOC: HO.HMCHD 09:24
PROVIDERS: PCP Internal Medicine; Visit Provider Physician Assistant
DX: I10 Essential (primary) hypertension (principal); E11.9 Type 2 diabetes mellitus without complications; E78.5 Hyperlipidemia, unspecified; G43.909 Migraine, unspecified, not intractable, without status migrainosus

== ENCOUNTER 2025-01-04 14:17 | Outpatient (AMB) | payer OTHER, SELFPAY ==
--- NOTE | 2025-01-04 14:24 | A.OFFPC_ITS ---
Vital Signs 01/04/25 14:29 01/04/25 14:57 Height 5 ft 7 in Weight 121.336 kg BMI 41.9 BP 182/102 H 135/77 Blood Pressure Location Lt brachial Position Sitting Respiration 16 Pulse 107 H 100 Pulse Source Pulse Oximeter Temp 97.1 F Temp Source Temporal Artery Scan Pulse Oximetry (%) 96 Intake Visit Reasons: Rx Review Medical Doctor Md/Medical Director Required: No Accompanied by: Self / Same As Patient Allergies No Known Allergies Allergy (Verified 01/04/25 14:24) Medication List - Last Reconciled 01/04/25 by Lennie Partida LPN blood sugar diagnostic (Accu-Chek Guide test strips) As directed.Check fasting glucose daily blood-glucose meter (Accu-Chek Guide Glucose Meter) As directed. Check fasting glucose daily empagliflozin (Jardiance) 10 mg PO DAILY hydrochlorothiazide 25 mg PO DAILY lancets (Accu-Chek Safe-T-Pro) As directed.Check fasting glucose daily lisinopril 20 mg PO DAILY meclizine 25 mg PO BID PRN 90 days metformin ER 1,000 mg (2 x 500 mg) PO BID sumatriptan succinate Take 1 tab as needed for headache. May repeat dose once in 2 hours. No more than 2 doses in 24 hours Tobacco use date assessed: 12/07/24 Dental Screening Dental Screen Date: 12/07/24 HPI HPI Comments History of Present Illness Details 39-year-old male with history of vertigo , type 2 diabetes, hypertension, migraines presents to the office today for follow-up HTN- was started on hydrochlorothiazide 25 mg daily in addition to the lisinopril 20 mg daily he had been taking due to uncontrolled blood pressures. Blood pressure on recheck in the office today using machine was 135/77. Difficult to auscultate. Type 2 diabetes- A1c improved to 7.6%. On jardiance 10 mg and metformin 1000 mg ER twice daily. Glucometer ordered but has not received this from the pharmacy. Annual eye exams, [facility]. Vertigo- managed with meclizine. Symptoms controlled Migraines- sumatriptan works well usually. Had a migraine tuesday that lasted 5 days. Photo and phonophobia. Occ aura. L sided pulling. Otherwise excedrine Concerns: None Health Maintenance: Colonoscopies to started 45 ROS: General: No fevers, malaise, unintentional weight loss HEENT: No blurred vision, diplopia. No sore throat, nasal congestion, rhinorrhea, sinus pain, ear pain Cardiovascular: No chest pain, palpitations, or leg edema Respiratory: No shortness of breath, wheezing, cough GI: No abdominal pain, nausea, vomiting, diarrhea, constipation, melena, hematochezia : No dysuria, hematuria, increased urinary frequency, decreased urinary output MSK: No myalgia, back pain Neuro: No headaches, weakness, paresthesias Skin: No rashes or lesions EXAM: Constitutional - Awake and Alert, No apparent distress Eyes - PERRL Cardiovascular - S1S2, RRR, No edema Respiratory - Normal lung expansion, Normal respiratory effort, No respiratory distress, CTA bilaterally Extremities - no calf tenderness bilaterally, no swelling Skin - Warm/Dry Neurological - Alert & oriented x3. CN III- in tact Psychological - Appropriate affect PFSH Medical History Migraines HLD (hyperlipidemia) Type 2 diabetes mellitus HTN (hypertension) Asthma Surgical History No pertinent past surgical history Family History (Updated 12/07/24 @ 09:33 by Janee Hidalgo MA) Maternal Grandfather Leukemia Mother No problems noted. Father No problems noted. Social History Housing: House Patient Tobacco Use Status: Never used Tobacco e-Cigarette/Vaping Use: Never Used service: No Current occupational status: employed Cognitive needs: No Hearing needs: No Vision needs: Yes (Rx glasses) Questionnaire Thrive Questionnaire Date Thrive assessed: 12/07/24 SASHA-7 AMB Questionnaire SASHA-7 Date SASHA - 7 assessed: 12/07/24 Source: Developed by Drs. Ashu Banks, Treasure Romero, Elvin Kapoor and colleagues, with an educational june from [employer]. Physical exam (Primary Care) Vital Signs: Last Vital Signs Temp 97.1 F 01/04/25 14:29 Pulse 100 01/04/25 14:57 Resp 16 01/04/25 14:29 BP 135/77 01/04/25 14:57 Pulse Ox 96 01/04/25 14:29 BMI result Body Mass Index 41.9 Tobacco/Smoking Status: Tobacco use Status Tobacco use date assessed 12/07/24 01/04/25 14:25 Patient Tobacco Use Status Never used Tobacco 01/04/25 14:25 e-Cigarette/Vaping Use Never Used 01/04/25 14:25 Thrive Assessment: Date of Thrive Assessment Date Thrive assessed 12/07/24 01/04/25 14:25 Coding Level of Care Code Est Pt Level 4 (30921) Diagnoses HTN (hypertension) I10 Type 2 diabetes mellitus E11.9 HLD (hyperlipidemia) E78.5 Migraines G43.909 Assessment & Plan Assessment & Plan (1) HTN (hypertension): Code(s): I10 - Essential (primary) hypertension Category: Medical Plan: Controlled on recheck. Continue hydrochlorothiazide 25 mg daily can continue lisinopril 20 mg daily (2) Type 2 diabetes mellitus: Code(s): E11.9 - Type 2 diabetes mellitus without complications Category: Medical Plan: Reviewed last A1c, uncontrolled at 7.6%. However, he had been out of his medications prior to this lab and has restarted now. Continue current medications (3) HLD (hyperlipidemia): Code(s): E78.5 - Hyperlipidemia, unspecified Category: Medical Plan: Controlled. (4) Migraines: Code(s): G43.909 - Migraine, unspecified, not intractable, without status migrainosus Category: Medical Plan: Not well-controlled. Follow-up with Neurology as scheduled Plan Follow-up in the office in 3 months with labs completed prior to visit Orders: Orders Basic Metabolic Panel 3 Months E11.9 - Type 2 diabetes mellitus without complications, I10 - Essential (primary) hypertension Hemoglobin A1c 3 Months E11.9 - Type 2 diabetes mellitus without complications, I10 - Essential (primary) hypertension Medications: New lisinopril-hydrochlorothiazide 20-25 mg 1 tab PO DAILY 90 tabs 1RF Discontinued lisinopril Discontinued Reason: Doctor's Order 20 mg PO DAILY 90 tabs 1RF hydrochlorothiazide Discontinued Reason: Doctor's Order 25 mg PO DAILY 90 tabs 1RF
[2025-01-04 14:29] VITALS: BP 182/102; PULSE 107; RESP 16; TEMP 36.2; O2SAT 96; BMI 41.9
[2025-01-04 14:57] VITALS: BP 135/77; PULSE 100
--- OUTSIDE RECORDS SUMMARY | 2025-01-04 14:57 | XMS_ITS | Patient Health Record ---
[facility] Address [address] [place] [address] Care Team Providers Care Stamping Bench Die Maker Name Role Phone Tavares Daniels MD Primary Care Provider Arie Leigh Unavailable [phone] Reason For Referral No Information Medications Medication [...] Order Date *Liver Function Test (LFT) 07/23/2016 77630 I&D ABSCESS- SIMPLE,SINGLE 016 08108 I&D ABSCESS- SIMPLE,SINGLE 016 55100- I&D ABSCESS-COMPLICATED,MULTI 07/2016 Insurance Providers Payer Name Payer Address Payer Phone Subscriber Number Group Number Insured Name Patient Relationship to Insured Coverage Start Date Coverage End Date C[employer] [address] [place], [place] [phone] [id number] Medardo Lew Self - patient is the insured Medical (General) History Medical History History ICD Code asthma Headaches
== END 2025-01-04 15:01 | disposition home or self-care (01) ==
LOC: HO.HMCHD 14:17
PROVIDERS: PCP Physician Assistant; Visit Provider Physician Assistant
DX: I10 Essential (primary) hypertension (principal); E11.9 Type 2 diabetes mellitus without complications; E78.5 Hyperlipidemia, unspecified; G43.909 Migraine, unspecified, not intractable, without status migrainosus